=== PATIENT | male | born 1970 | race Caucasian/White ===

== ENCOUNTER 2017-12-25 07:50 | Inpatient (IN) | payer OTHER ==
[~2017-12-25 07:50] MED LIST: Acetaminophen 500 MG Tab PO ONE; Celecoxib 200 MG Cap PO ONE; Dextrose 5%-Lactated Ringers 1,000 ML IV SCH; Gabapentin 300 MG Cap PO ONE; Scopolamine 1.5 MG Transdermal Patch TOP SCH
[2017-12-25] MEDS ORDERED: Glycopyrrolate 0.2 MG/ML 5 ML MDV ONE (07:57)
[2017-12-25] MEDS ORDERED: Succinylcholine 200 MG/10 ML MDV ONE (07:57)
[2017-12-25] MEDS ORDERED: Propofol 200 MG/20 ML SDV ONE (07:57)
[2017-12-25] MEDS ORDERED: Rocuronium 50 MG/5 ML Vial ONE (07:57)
[2017-12-25] MEDS ORDERED: Dexamethasone 4 MG/ML SDV ONE (07:57)
[2017-12-25] MEDS ORDERED: Neostigmine Methylsulfate 1 MG/ML 5 ML Syringe ONE (07:57)
[2017-12-25] MEDS ORDERED: Ondansetron 4 MG/2 ML SDV ONE (07:57)
[2017-12-25] MEDS ORDERED: Lactated Ringers 1,000 ML ONE (08:02)
[2017-12-25] MEDS ORDERED: Celecoxib 200 MG Cap PO ONE (08:15)
[2017-12-25] MEDS ORDERED: Gabapentin 300 MG Cap PO ONE (08:15)
[2017-12-25] MEDS ORDERED: Acetaminophen 500 MG Tab PO ONE (08:15)
[2017-12-25] MEDS ORDERED: Dextrose 5%-Lactated Ringers 1,000 ML IV SCH ×2 (08:30→15:45)
[2017-12-25] MEDS ORDERED: Scopolamine 1.5 MG Transdermal Patch TOP SCH (08:30)
[2017-12-25] MEDS ORDERED: Albuterol/Ipratropium 3.0-0.5 MG/3 ML Neb Soln NEB ONE (08:51)
[2017-12-25] MEDS ORDERED: Lidocaine 2% 100 MG/5 ML Syringe IVPUSH ONE (09:30)
[2017-12-25] MEDS ORDERED: Ketamine 500 MG/5 ML MDV IV SCH (09:30)
[2017-12-25] MEDS ORDERED: Lidocaine 0.4%/D5W 2 GM/500 ML BAG IV SCH (09:30)
[2017-12-25] MEDS ORDERED: Ropivacaine 60 ML, Dexamethasone 8 MG, EPINEPHrine 0.4 MG, Sodium Chloride 0.9% 17.6 ML NERVRT SCH ×4 (09:30)
[2017-12-25] MEDS: cefOXitin 2 GM in Sodium Chloride 0.9% 50 ML IV ONE ×2 (11:42→16:44)
[2017-12-25] MEDS: cefOXitin 2 GM Vial ONE ×2 (12:33→13:30)
[2017-12-25] MEDS ORDERED: hydrOXYzine HCl 100 MG/2 ML SDV IM ONE (13:50)
[2017-12-25] MEDS: Nicotine 14 MG/24 Hr Patch TRDERM SCH (14:05)
[2017-12-25] MEDS ORDERED: Metoclopramide 10 MG/2 ML SDV IVPUSH PRN (16:00)
[2017-12-25] MEDS ORDERED: Ondansetron 4 MG/2 ML SDV IVPUSH PRN (16:00)
[2017-12-25] MEDS ORDERED: SCOPOLAMINE PATCH CHECK TOP SCH (16:00)
[2017-12-25] MEDS ORDERED: Albuterol/Ipratropium 3.0-0.5 MG/3 ML Neb Soln INH PRN (16:00)
[2017-12-25] MEDS ORDERED: diphenhydrAMINE 50 MG/ML SDV IVPUSH PRN (16:00)
[2017-12-25] MEDS ORDERED: hydrOXYzine HCl 100 MG/2 ML SDV IM PRN (16:00)
[2017-12-25] MEDS: Acetaminophen Soln 650 MG/20.3 ML UD Cup PO SCH ×2 (16:47→21:47)
[2017-12-25] MEDS ORDERED: MVI, Adult with Vitamin K 10 ML, Thiamine 100 MG, Chromium/Copper/Mang/Selen/Zn 1 ML in... IV SCH ×4 (17:00)
[2017-12-25] MEDS ORDERED: Pantoprazole 40 MG Vial IVPUSH SCH (17:00)
[2017-12-25] MEDS: cefOXitin 2 GM in Sodium Chloride 0.9% 50 ML IV SCH ×2 (17:31→22:53)
[2017-12-25] MEDS: Heparin Sodium 5,000 Units/ML Vial SUBCUT SCH (17:32)
[2017-12-25] MEDS: Insulin Aspart 100 Units/ML 3 ML Pen SUBCUT PRN ×2 (17:40→22:07)
[2017-12-25] MEDS: Labetalol 20 MG/4 ML Syringe IVPUSH PRN ×2 (18:40→21:07)
[2017-12-25] MEDS: Albuterol/Ipratropium 3.0-0.5 MG/3 ML Neb Soln INH SCH (21:51)
[2017-12-25] MEDS: Gabapentin 250 MG/5 ML Solution ML 470 ML Bottle PO SCH (21:51)
[2017-12-26] MEDS: Heparin Sodium 5,000 Units/ML Vial SUBCUT SCH ×3 (02:35→17:25)
[2017-12-26] MEDS ORDERED: Iohexol 647 MG/ML 50 ML SDV PO STA (02:38)
[2017-12-26] MEDS: Acetaminophen Soln 650 MG/20.3 ML UD Cup PO SCH ×4 (03:32→21:15)
[2017-12-26] MEDS: Insulin Aspart 100 Units/ML 3 ML Pen SUBCUT PRN (04:50)
[2017-12-26] MEDS: cefOXitin 2 GM in Sodium Chloride 0.9% 50 ML IV SCH ×2 (04:51→11:51)
[2017-12-26] MEDS ORDERED: Ondansetron 4 MG Tab.DIS PO PRN (07:10)
[2017-12-26] MEDS ORDERED: EPINEPHrine 1 MG/ML SDV SUBCUT PRN (07:12)
[2017-12-26] MEDS: Celecoxib 200 MG Cap PO SCH (07:21)
[2017-12-26] MEDS: Albuterol/Ipratropium 3.0-0.5 MG/3 ML Neb Soln INH SCH ×4 (07:34→21:15)
--- NOTE | 2017-12-26 08:14 | PN ---
DATE OF SERVICE: 12/26/2017 SUBJECTIVE: Finn is postop day #1 following a Hao-en-Y gastric bypass surgery. His pain has been controlled. Blood pressure has been elevated with diastolic of 102. He has received labetalol, voiding without difficulty. Last two blood sugars were 307 and 260, hemoglobin A1c yesterday was 9.9. He has no questions or concerns. OBJECTIVE: GENERAL: Finn Bower is a 47-year-old male. He is alert and orientated, sitting up in the chair. VITAL SIGNS: TPR is 99.2, 117, 16; blood pressure 149/102. HEENT: Negative. NECK: Supple. HEART: Regular rate and rhythm. LUNGS: Clear. ABDOMEN: Dressings dry and intact. BELKIS drain is intact. Abdominal binder is on. EXTREMITIES: Without peripheral edema. ASSESSMENT: Laparoscopic gastric bypass surgery, liver biopsy, repair of diaphragmatic hernia, excision of mediastinal lipoma, and small bowel resection for morbid obesity, hepatomegaly, diaphragmatic hernia, mediastinal lipoma, extreme extensive immobility of small bowel secondary to extensive fat and mesentery. Date of surgery 12/25/2017. Surgeon, Edwin Feliz MD. PLAN: 1. Step-2 without cereal gastric bypass diet. 2. Discontinue compliance monitor. 3. Dressing off, may shower. 4. Three med cups per hour. 5. Discontinue D5LR, change to lactated Ringer's 100 mL per hour. 6. Restart home medication of aspirin 81 mg daily, Coreg 25 mg p.o. b.i.d., EpiPen as directed p.r.n. allergies, lisinopril 40 mg p.o. daily, omeprazole 20 mg p.o. daily, Zofran 4 mg ODT every 4 hours p.r.n., prednisone 10 mg oral daily, and ranitidine 300 mg oral daily. 7. Communication order 3 med cups at bedside. Nursing staff will call in regard to 10:00 a.m. blood sugar and right now we will hold on starting any diabetic medications pending with the 10:00 a.m. blood sugar results. 8. Good pulmonary toilet as the patient is a current smoker. 9. We will evaluate p.r.n. or in a.m. Ketty Adams PA-C /[id number]
[2017-12-26] MEDS: Aspirin 81 MG Tab.EC PO SCH (08:48)
[2017-12-26] MEDS: Allopurinol 300 MG Tab PO SCH (08:48)
[2017-12-26] MEDS: predniSONE 10 MG Tab PO SCH (08:49)
[2017-12-26] MEDS: Carvedilol 25 MG Tab PO SCH ×2 (08:49→21:15)
[2017-12-26] MEDS: Lisinopril 20 MG Tab PO SCH (08:49)
[2017-12-26] MEDS: Nicotine 14 MG/24 Hr Patch TRDERM SCH (08:50)
[2017-12-26] MEDS: Gabapentin 250 MG/5 ML Solution ML 470 ML Bottle PO SCH ×3 (08:57→21:15)
[2017-12-26] MEDS ORDERED: Pantoprazole 40 MG Delayed-Release Granules 1 Packet PO SCH (09:00)
--- NOTE | 2017-12-26 09:34 | CR ---
[facility] [employer] CLINICAL HISTORY: Status post Hao-en-Y FINDINGS: There is a surgical drain in the left upper quadrant. Initial image shows barium in the dis kalina esophagus gastric remanent and proximal small bowel. On the delayed upright image there is contra st through the mid to distal small bowel. There is a small collection of barium near the gastroesopha geal junction. This is likely within the redundant fold. There is no extravasation seen. There is a small left effusion. Impression: Status post sent Hao-en-Y No evidence of extravasation or obstruction Small left effusion suggested
[2017-12-26] MEDS: Lactated Ringers 1,000 ML IV SCH (11:51)
[2017-12-26] MEDS ORDERED: MVI, Adult with Vitamin K 10 ML, Thiamine 100 MG, Chromium/Copper/Mang/Selen/Zn 1 ML in... IV SCH ×4 (16:00)
[2017-12-27] MEDS: Heparin Sodium 5,000 Units/ML Vial SUBCUT SCH (01:48)
[2017-12-27] MEDS: Lactated Ringers 1,000 ML IV SCH (03:42)
[2017-12-27] MEDS: Acetaminophen Soln 650 MG/20.3 ML UD Cup PO SCH (03:44)
[2017-12-27] MEDS: Celecoxib 200 MG Cap PO SCH (08:02)
[2017-12-27] MEDS: predniSONE 10 MG Tab PO SCH (08:02)
[2017-12-27] MEDS: Nicotine 14 MG/24 Hr Patch TRDERM SCH (08:03)
[2017-12-27] MEDS: Carvedilol 25 MG Tab PO SCH (08:03)
[2017-12-27] MEDS: Aspirin 81 MG Tab.EC PO SCH (08:03)
[2017-12-27] MEDS: Lisinopril 20 MG Tab PO SCH (08:03)
[2017-12-27] MEDS: Allopurinol 300 MG Tab PO SCH (08:04)
[2017-12-27] MEDS ORDERED: Cyanocobalamin (Vitamin B12) 1,000 MCG/ML SDV IM ONE (09:00)
--- NOTE | 2017-12-29 11:25 | DISCH ---
DISCHARGE DIAGNOSES: 1. Striking hepatomegaly with hepatic fatty infiltration. 2. Paraesophageal diaphragmatic hernia. 3. Mediastinal lipoma. 4. Extreme immobility of small bowel secondary to extensive fat in small bowel mesentery. SECONDARY DIAGNOSES: 1. Type 2 diabetes mellitus. 2. Renal artery stenosis. 3. Left ventricular hypertrophy. 4. Gout. 5. Obstructive sleep apnea. OPERATIVE PROCEDURES: Done on 12/25/2017; 1. Laparoscopic Hao-en-Y gastric bypass. 2. Niko-Cut needle liver biopsy. 3. Repair of paraesophageal diaphragmatic hernia, along with excision of mediastinal lipoma. 4. Small bowel resection to facilitate mobility of jejunojejunostomy. HOSPITAL COURSE: This 47-year-old was presenting with longstanding morbid obesity, increasingly significant comorbidities. His preoperative hemoglobin A1c on the date of admission was 9.9. The patient underwent the above-stated procedures. Postoperatively, he has had a smooth postoperative course. Presently, his blood sugars have come down, such that the last 4 blood sugars have all been between 130s and 150s, off all diabetic medications. He is tolerating a step-2 diet. He will be discharged home today with followup with Ketty Adams in [facility] on 01/05/2018. He will be continuing the Celebrex and Tylenol as needed for pain. He is requested to maintain a blood sugar log over the next several days prior to the appointment and bring that to the appointment for followup of the diabetic status.
--- NOTE | 2018-01-02 08:16 | OR ---
DATE OF PROCEDURE: 12/25/2017 PREOPERATIVE DIAGNOSIS: Morbid obesity. POSTOPERATIVE DIAGNOSES: 1. Morbid obesity. 2. Very striking hepatomegaly with gross fatty infiltration of the liver. 3. Paraesophageal diaphragmatic hernia associated with mediastinal lipoma. 4. Extreme immobility of small bowel secondary to extensive fat infiltration of small bowel mesentery. OPERATIVE PROCEDURES: 1. Laparoscopic Hao-en-Y gastric bypass with long limb gastroenterostomy (20746). 2. Niko-Cut needle liver biopsy (35477). 3. Repair of paraesophageal diaphragmatic hernia (96745). 4. Excision of mediastinal lipoma (81787). 5. Small bowel resection to facilitate mobility of jejunojejunostomy, allowing an adequately tension-free gastrojejunostomy (51698). ANESTHESIA: General. REGULATOR PIN INSERTER: Ketty Adams PA-C. INDICATION FOR PROCEDURE: This is a 47-year-old male presenting with longstanding morbid obesity and increasingly significant comorbidities. After preoperative evaluation and discussion, he wished to proceed with a gastric bypass procedure. Potential risks of the procedure including bleeding, infection, leaks from various GI tract closures, problems with bowel obstruction over time, as well as the possibility of cardiopulmonary, septic, or hemorrhagic complications leading to were discussed, and the patient wishes to proceed. DETAILS OF PROCEDURE: The patient was taken to the operating room and after general endotracheal anesthesia was induced, he was placed in a lithotomy position. Orogastric tube was placed, and the abdomen was prepped and draped. At 15 cm inferior and 5 cm left of the xiphoid process, a transverse incision was made, and the peritoneal cavity entered under direct vision with an Optiview trocar and inflated to 15 mmHg pressure with CO2. Laparoscope was then reinserted. No underlying trocar insertion site injuries were seen. At this point, bilateral subcostal transversus abdominis plane blocks were placed using the standard solution. The location of the injection in terms of the needle tip in the transversus abdominis plane was done with direct visualization. Following this, 5 additional trocars were placed across the upper and mid abdomen and general exploration was undertaken. The patient was noted to have an extremely enlarged liver with the liver being grossly fatty infiltrated. There was no significant portal hypertension evident and no nodularity suggestive of cirrhosis per se at this point. Niko- Cut needle biopsy was obtained from the left lobe of the liver, and minimal bleeding from the biopsy sites was controlled with electrocautery. At this point, the omentum was divided in the midline up to the level of the transverse colon. This allowed identification of the small bowel to the ligament of Treitz. Small bowel was then traced out 200 cm distal to that point and was divided transversely with a CAMILLE stapler. Small bowel was then traced out additional 200 cm, where the [id number] enteroenterostomy was accomplished with internal firing of the Endo-CAMILLE 60 mm stapler. The common opening was then closed transversely with the same stapler, the angles anastomosed, and the mesenteric defect approximated with some 0 Ethibond stitch, along with 4 mL of fibrin sealant. Divided end of the Hao limb was then from the mesentery for a few centimeters, allowing an antecolic position of his Hao limb up to the level of the gastroesophageal junction without tension. At the initial evaluation of the small bowel, it was noted to be quite immobile due to extensive fatty infiltration of the mesentery. It was felt that this would impair the mobility of the small bowel in terms of obtaining a relatively tension-free gastrojejunostomy. Given this, prior to construction of the anastomosis, around 10 mm of small bowel on the biliopancreatic limb was resected by means of Harmonic scalpel and CAMILLE stapler. This then allowed the subsequent anastomosis, described above, to be completed and be adequately mobile to come up somewhat over the transverse colon, allowing a relatively tension-free gastrojejunostomy. At this point, the liver was retracted anteriorly. Additional 5 mm trocar was required to help retract the liver. It was placed in the left mid-abdomen. The patient was noted to have a moderate-sized paraesophageal diaphragmatic hernia containing some perigastric fat and a portion of the gastric fundus. This was reduced, and the peritoneum overlying it was incised and reflected downward. During the course of the dissection of the diaphragmatic hernia, mediastinal lipoma was encountered, and this was excised and sent for histologic evaluation. The diaphragmatic hernia was then repaired with a series of 0 Ethibond sutures, reinforced with PTFE pledgets, done in an anterior manner. The gastrointestinal balloon catheter was then inflated to 15 mL and pulled up snuggly against the EG junction. Gastric wall over apex balloon was then marked with electrocautery and the balloon catheter deflated and pulled up in the esophagus. The lesser omental tissue adjacent to the gastric cardia was then incised, allowing the dissection behind the stomach at that level. Pouch formation was initiated with a CAMILLE stapler at the level of the cauterized darlene on the gastric cardia and thereafter completed with additional CAMILLE staple loads up to and through the angle of His. Upon completion of the pouch, both staple lines were noted to be intact. The anvil of a 25-mm EEA stapler was then attached to the Aiken sump type tube. The latter was brought down through the mouth and taken out through a small opening in the gastric pouch, allowing the anvil likewise to be pulled into the gastric pouch. The divided end of the Hao limb was then opened, and the main body of the EEA stapler passed several centimeters into the lumen of the small bowel, brought up the anvil and united with it, thus creating the gastrojejunostomy. Upon removal of the stapler, double donuts of mucosa were noted within it. Then, the small bowel was closed off with a vascular staple line. Gastrojejunostomy was reinforced with 3-0 Vicryl seromuscular stitch, along with fibrin sealant. A leak test was accomplished with injection of 120 mL of air in the gastric pouch while submerged with cefoxitin-containing saline solution. No leaks were identified. A single Marino-Hernandez drain was then placed through the left lateral trocar site and positioned adjacent to the gastrojejunostomy and, from there, up into the splenic fossa. The trocars were removed, and the peritoneal cavity was deflated. Incisions were closed with 4-0 Vicryl skin stitch, which was also used to affix the drain. Dressings were applied. The patient was taken to the recovery room in a satisfactory condition. Physician chef's assistant, Ketty Adams, played an essential role in assisting in this case, helping to position the patient, retract structures as needed, as well as suturing and cutting sutures when indicated. Her presence improved patient safety and decreased the operative time. Edwin Feliz MD /[id number]
== END 2017-12-27 08:24 | disposition home or self-care (01) | DRG 621 ==
LOC: JP.SDS 07:50 → JP.MS 07:50 → EDSTATUS 12:00 → JP.2SS 13:50
PROVIDERS: ADMIT Surgery; ATTEND Surgery
PROC: 0D164ZA Bypass Stomach to Jejunum, Percutaneous Endoscopic Approach (ICD-10-PCS; principal; 2017-12-25)
PROC: 0FB24ZX Excision of Left Lobe Liver, Percutaneous Endoscopic Approach, Diagnostic (ICD-10-PCS; 2017-12-25)
PROC: 0BQT4ZZ Repair Diaphragm, Percutaneous Endoscopic Approach (ICD-10-PCS; 2017-12-25)
PROC: 0WBC4ZX Excision of Mediastinum, Percutaneous Endoscopic Approach, Diagnostic (ICD-10-PCS; 2017-12-25)
PROC: 3E0T3BZ Introduction of Anesthetic Agent into Peripheral Nerves and Plexi, Percutaneous Approach (ICD-10-PCS; 2017-12-25)
PROC: 0DB94ZX Excision of Duodenum, Percutaneous Endoscopic Approach, Diagnostic (ICD-10-PCS; 2017-12-25)
DX: E66.01 Morbid (severe) obesity due to excess calories (principal); Z68.38 Body mass index [BMI] 38.0-38.9, adult; R16.0 Hepatomegaly, not elsewhere classified; K44.9 Diaphragmatic hernia without obstruction or gangrene; D17.4 Benign lipomatous neoplasm of intrathoracic organs; K59.8 Other specified functional intestinal disorders; K76.0 Fatty (change of) liver, not elsewhere classified; I10 Essential (primary) hypertension; I25.10 Atherosclerotic heart disease of native coronary artery without angina pectoris; Z95.5 Presence of coronary angioplasty implant and graft; E11.9 Type 2 diabetes mellitus without complications; G89.29 Other chronic pain; M10.9 Gout, unspecified; E78.00 Pure hypercholesterolemia, unspecified; G47.33 Obstructive sleep apnea (adult) (pediatric); Z79.82 Long term (current) use of aspirin; Z88.8 Allergy status to other drugs, medicaments and biological substances
CPT/HCPCS: 36415; 74240; 74240-26; 82947; 82962; 83036; 83735; 83880; 84100; 86850; 86900; 86901; 88304; 88307; 88313; 94640; A9270-GY; C9113; J0171; J0330; J0694; J1100; J1644; J2001; J2405; J2704; J2710; J2795; J3010; J3410; J3411; J3420; J7030; J7040; J7042; J7050; J7120; J7620; Q9967

== ENCOUNTER 2018-01-27 06:40 | Day surgery (SDC) | payer OTHER ==
[2018-01-27] MEDS ORDERED: Cyanocobalamin (Vitamin B12) 1,000 MCG/ML SDV IM ONE (07:00)
[2018-01-27] MEDS ORDERED: Glycopyrrolate 0.2 MG/ML 2 ML SDV IVPUSH ONE (07:00)
[2018-01-27] MEDS ORDERED: Lactated Ringers 1,000 ML IV SCH (07:00)
[2018-01-27] MEDS ORDERED: Midazolam 1 MG/ML 2 ML SDV ONE (07:20)
[2018-01-27] MEDS ORDERED: fentaNYL 100 MCG/2 ML SDV ONE (07:20)
[2018-01-27] MEDS ORDERED: Propofol 200 MG/20 ML SDV ONE (07:21)
[2018-01-27] MEDS ORDERED: MVI, Adult with Vitamin K 10 ML, Thiamine 100 MG, Chromium/Copper/Mang/Selen/Zn 1 ML in... IV ONE ×4 (08:00)
--- NOTE | 2018-02-02 18:38 | OR ---
DATE OF PROCEDURE: 01/27/2018 PREOPERATIVE DIAGNOSIS: Probable strictured gastrojejunostomy. POSTOPERATIVE DIAGNOSES: 1. Mild strictured gastrojejunostomy. 2. Pouch gastritis. OPERATIVE PROCEDURE: Upper gastrointestinal endoscopy with: 1. Dilation of gastrojejunostomy (29211). 2. Biopsies of gastric pouch for CLOtest (68142). ANESTHESIA: IV sedation. INDICATIONS FOR PROCEDURE: This is a 47-year-old presenting with probable stricturing of the gastric bypass done on 12/25/2017. Plan is to proceed with upper GI endoscopy with dilation as indicated. Potential risks including bleeding and perforation were discussed, and the patient wishes to proceed. DESCRIPTION OF PROCEDURE: The patient was taken to the operating room and placed in a left lateral decubitus position. IV sedation was administered, after which the upper GI endoscope was passed orally through the length of the esophagus and into the gastric pouch to the level of the gastrojejunostomy. No retained food or fluid was noted. There was redness in the distal aspect of the gastric pouch. There was a mild stricture not quite admitting the 1 cm scope at this point at the gastrojejunostomy. Bard gastrointestinal catheter was then entered across the anastomosis and inflated to 45-[place] size, held in position for 1 minute after balloon catheter was deflated and withdrawn. The scope could easily then be passed through the anastomosis. No complications were noted. To reappreciate the patient's H. pylori status, biopsies were obtained from the gastric pouch, sent for CLOtest and minimal bleeding from the biopsy site was seen. The procedure was then concluded. The patient was taken to the recovery room in satisfactory condition. Edwin Feliz MD /[id number]
== END 2018-01-27 08:45 | disposition home or self-care (01) ==
LOC: JP.SDS 06:40
PROVIDERS: ATTEND Surgery
DX: K95.89 Other complications of other bariatric procedure (principal); K29.70 Gastritis, unspecified, without bleeding; I25.10 Atherosclerotic heart disease of native coronary artery without angina pectoris; I10 Essential (primary) hypertension; K21.9 Gastro-esophageal reflux disease without esophagitis; E66.01 Morbid (severe) obesity due to excess calories; E11.9 Type 2 diabetes mellitus without complications; G47.33 Obstructive sleep apnea (adult) (pediatric); Z88.8 Allergy status to other drugs, medicaments and biological substances
CPT/HCPCS: 36415; 43239; 43245; 80053; 83735; 84100; 85027; 87081; J2250; J2704; J3010; J3420; J7120; J3490

== ENCOUNTER 2018-06-04 07:41 | Day surgery (SDC) | payer OTHER ==
[~2018-06-04 07:41] MED LIST changes: -Acetaminophen 500 MG Tab PO ONE; -Celecoxib 200 MG Cap PO ONE; -Dextrose 5%-Lactated Ringers 1,000 ML IV SCH; -Gabapentin 300 MG Cap PO ONE; +Midazolam 1 MG/ML 2 ML SDV ONE; +Propofol 200 MG/20 ML SDV ONE; -Scopolamine 1.5 MG Transdermal Patch TOP SCH; +fentaNYL 100 MCG/2 ML SDV ONE
[2018-06-04] MEDS ORDERED: Lactated Ringers 1,000 ML IV ONE (08:00)
[2018-06-04] MEDS ORDERED: Cyanocobalamin (Vitamin B12) 1,000 MCG/ML SDV IM ONE (08:00)
[2018-06-04] MEDS ORDERED: Glycopyrrolate 0.2 MG/ML 2 ML SDV IVPUSH ONE (08:30)
[2018-06-04] MEDS ORDERED: MVI, Adult with Vitamin K 10 ML, Thiamine 200 MG, Chromium/Copper/Mang/Selen/Zn 1 ML in... IV ONE ×4 (09:30)
[2018-06-04] MEDS ORDERED: Pantoprazole 40 MG Vial IVPUSH ONE (09:44)
--- NOTE | 2018-06-08 23:08 | OR ---
DATE OF PROCEDURE: 06/04/2018 PREOPERATIVE DIAGNOSIS: Dysphagia, status post Hao-en-Y gastric bypass. POSTOPERATIVE DIAGNOSES: Dysphagia, status post Hao-en-Y gastric bypass associated with pouch gastritis and marginal ulcer. OPERATIVE PROCEDURE: Upper GI endoscopy with biopsies of gastric pouch for CLOtest. ANESTHESIA: IV sedation. DETAILS OF PROCEDURE: The patient was taken to the operating room and placed in the left lateral decubitus position. IV sedation was administered, after which the upper GI endoscope was passed orally through the length of the esophagus and into the stomach, then beyond the gastric pouch through the gastrojejunostomy roughly 20 cm into the Hao limb. Overall, there was no stricturing per se. The patient did have some edema of the distal- most esophagus, gastric pouch and gastrojejunostomy. This was associated with some pouch gastritis along with a thin superficial marginal ulcer present at the gastrojejunostomy extending slightly, 1 to 1.5 cm into the jejunum. There was no bleeding otherwise noted or other complications. Biopsies were then obtained from the gastric pouch and sent for CLOtest for H. pylori. Minimal bleeding from the biopsy sites was seen, and the procedure then concluded. In reviewing the patient's medical management, he had been prescribed both Zantac and Prilosec, but he had only been taking those quite sporadically. Given this, we will give him Protonix 40 mg IV in the recovery room and then begin 40 mg p.o. daily. He and his were instructed to be as much as possible compliant with taking the Protonix, and this should likely solve the marginal ulcer issue. Some of his other medications, I believe, have gone off from a Cardiovascular standpoint, such as lowering agents, aspirin, and some cardiovascular agents were also reviewed, and he will be restarting those hopefully as well. He will be following up with Ketty Adams in 3 weeks. Edwin Feliz MD /[id number]
== END 2018-06-04 10:53 | disposition home or self-care (01) ==
LOC: JP.SDS 07:41
PROVIDERS: ATTEND Surgery
DX: R13.10 Dysphagia, unspecified (principal); K29.60 Other gastritis without bleeding; K28.9 Gastrojejunal ulcer, unspecified as acute or chronic, without hemorrhage or perforation; I10 Essential (primary) hypertension; E11.9 Type 2 diabetes mellitus without complications; E66.9 Obesity, unspecified; E78.5 Hyperlipidemia, unspecified; K21.9 Gastro-esophageal reflux disease without esophagitis; G47.33 Obstructive sleep apnea (adult) (pediatric); Z98.0 Intestinal bypass and anastomosis status; Z88.8 Allergy status to other drugs, medicaments and biological substances
CPT/HCPCS: 43239; 87081; C9113; J2250; J2704; J3010; J3411; J3420; J3490; J7120